=== PATIENT | male | born 1985 | race Asian ===

== ENCOUNTER 2016-06-15 13:22 | Emergency (ER) | payer OTHER ==
[~2016-06-15] VITALS: Ht 177.8 cm; Wt 93.0 kg
--- NOTE | 2016-06-15 13:44 | ED CARDIAC/CP/PALPITATIONS ---
History of Present Illness General Chief Complaint: Chest Pain Stated Complaint: CP Source: patient Exam Limitations: no limitations Allergies Coded Allergies: No Known Allergies (06/15/16) Reconcile Medications No Known Home Medications Triage Note: 30 Y/O MALE C/O L SIDED CHEST PAIN, INTERMITTENT SINCE YESTERDAY. "ITS DURING ONE BEAT AND THEN I DONT FEEL IT". DENIES FEELING ANY CHEST PAIN AT THIS TIME. +LIGHTHEADED PER PT. TAKEN FOR EKG Triage Nurses Notes Reviewed? yes HPI: This patient is a 30-year-old male with a past medical history including, "leaky heart valve," who presented to the emergency department today for evaluation of chest pain. The patient reported that yesterday throughout the day he would have one second intervals of sharp, squeezing left-sided chest pain that was coming go on its own. No provoking or palliative factors. He reported that the pain got up to a 3 or 4 out of 10. He reported that he was feeling some numbness in his left arm yesterday. He reported that he has been feeling dizzy and, "off," today. No chest pain or difficulty breathing today. He denied any fevers, chills, abdominal pain, nausea, vomiting, or back pain. No visual changes. The patient reported that approximately 4 years ago he was told that he had, "a leaky heart valve," and then 3 years ago he followed up with a public policy associate. They did an echocardiogram and an EKG and told him that he needed to follow-up for a stress test which he never did. The patient also reported that he has been under a lot of stress lately. (CLAUDIA GODINEZ,DIMITRIS) Vital Signs & Intake/Output Vital Signs & Intake/Output Vital Signs Date Time Temp Pulse Resp B/P B/P Pulse O2 O2 Flow FiO2 Mean Ox Delivery Rate 06/15 1521 98.8 75 18 127/75 99 Room Air 06/15 1326 97.7 97 16 166/90 98 Room Air Past History Travel History Traveled to [place] past 21 day No Medical History Any Pertinent Medical History? 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 No (CLAUDIA GODINEZ,DIMITRIS) Review of Systems Review of Systems Constitutional: Reports: no symptoms. EENTM: Reports: no symptoms. Respiratory: Reports: no symptoms. Cardiovascular: Reports: see HPI. GI: Reports: no symptoms. Genitourinary: Reports: no symptoms. Musculoskeletal: Reports: no symptoms. Skin: Reports: no symptoms. Neurological/Psychological: Reports: see HPI. All Other Systems: Reviewed and Negative (CLAUDIA GODINEZ,DIMITRIS) Physical Exam Physical Exam Cardiovascular: regular rate/rhythm, normal peripheral pulses, NO jvd. nO CAROTID BRUITS. nO RUBS OR GALLOPS. dIASTOLIC MURMUR HEARD BEST AT THEM FIFTH INTERCOSTAL SPACE, LEFT STERNAL BORDER Comments: Well-developed well-nourished person in no acute distress HEENT: Normal EENT exam, head normocephalic, moist mucous membranes PERRLA bilaterally Neck: Supple with no lymphadenopathy Back: Normal gait Respiratory: Chest nontender. No respiratory distress. Speaking in full sentences. Lungs clear to auscultation bilaterally with no wheezes, rales, or rhonchi Abdomen: Soft, nontender and nondistended Extremity: No edema, no calf tenderness to palpation, normal and equal pulses. Neuro: Alert oriented x3, cranial nerves II through XII grossly intact. Capillary refill less than 2 seconds Skin: No appreciable rash on exposed skin, skin is warm and dry. Psych: Mood and affect is normal Core Measures ACS in differential dx? Yes Severe Sepsis Present: No Septic Shock Present: No (CLAUDIA GODINEZ,DIMITRIS) Progress Differential Diagnosis: AMI, aortic dissection, atrial fibrillation, CHF/pulm edema, costochondritis, hyperkalemia, hyperthyroid, hyperventilation, musculoskeletal pain, myocarditis, pancreatitis, pericarditis, pneumonia, pneumothorax, PSVT, pulmonary embolism, PUD/GERD, PVCs/PACs, sepsis, unstable angina Diagnostic Imaging: Viewed by Me: Radiology Read. Discussed w/RAD: Radiology Read. Radiology Impression: PATIENT: ANTOINETTE ROOT PRESENT AGE: 30 PATIENT ACCOUNT NO: [id number] : 85 LOCATION: [facility] ORDERING PHYSICIAN: DIMITRIS TAYLOR PA-C SERVICE DATE: 06/15/16 EXAM TYPE: RAD - XRY-CHEST XRAY, PA AND LATERAL EXAMINATION: XR CHEST CLINICAL INFORMATION: Chest pain. Evaluate for cardiomegaly. COMPARISON: None TECHNIQUE: 2 views of the chest were obtained. FINDINGS: The cardiomediastinal silhouette is within normal limits in size. Lungs bilaterally are symmetrically expanded and clear. No effusion or pneumothorax is seen. Bony structures are unremarkable. IMPRESSION: Unremarkable examination. No evidence of cardiomegaly. DICTATED BY: DONNA VALLEJO MD DATE/TIME DICTATED:06/15/161404 CAP MACHINE OPERATOR:FAVIO DATE/TIME TRANSCRIBED:06/15/161404 CONFIDENTIAL, DO NOT COPY WITHOUT APPROPRIATE AUTHORIZATION. <Electronically signed in Other Vendor System> SIGNED BY: DONNA VALLEJO MD 06/15/161414 Initial ED EKG: normal axis, normal intervals, RBBB, no ST T wave changes, 64 BPM Comments: 4::2016 3:28:11 PM: I spoke with on-call cardiology, Dr. Lloyd, regarding this patient. Troponin <0.01. EKG with a slight RBBB, but no prior EKG to compare with. He suggested that this patient can be discharged and follow-up in the office. He stated that this patient's symptoms of 1 second chest pain does not sound cardiac in nature, but will need follow-up. Discussed this patient with Dr. Solorio who is in agreement with the plan. (CLAUDIA GODINEZ,DIMITRIS) Plan of Care: Orders Procedure Date/time Status Add-on Test (ER Only) 06/15 1411 Active DIRECT BILIRUBIN 06/15 1336 Complete THYROID STIMULATING HORMONE 06/15 1328 Complete TROPONIN LEVEL 06/15 1328 Complete LIPID PANEL 06/15 1328 Complete FREE T4 06/15 1328 Complete COMPREHENSIVE METABOLIC PANEL 06/15 1328 Complete CBC WITHOUT DIFFERENTIAL 06/15 1328 Complete EKG 06/15 1323 Active Laboratory Tests 06/15/16 1336: Anion Gap 13, Estimated GFR > 60, BUN/Creatinine Ratio 18.9, Glucose 104 H, Calcium 9.8, Total Bilirubin 1.4 H, Direct Bilirubin 0.2, AST 23, ALT 35, Alkaline Phosphatase 79, Troponin I < 0.01, Total Protein 8.3 H, Albumin 4.7, Globulin 3.6, Albumin/Globulin Ratio 1.3, Triglycerides 75, Cholesterol 159, LDL Cholesterol, Calc 89, HDL Cholesterol 55, Cholesterol/HDL Ratio 3, TSH 0.716, Free T4 1.35, CBC w Diff NO MAN DIFF REQ, RBC 5.11, MCV 87.4, MCH 29.3, RDW 12.7 , MPV 7.5, Gran % 60.1, Lymphocytes % 32.5, Monocytes % 6.2, Eosinophils % 0.8, Basophils % 0.4, Absolute Granulocytes 5.2, Absolute Lymphocytes 2.8, Absolute Monocytes 0.5, Absolute Eosinophils 0.1, Absolute Basophils 0, PUBS MCHC 33.5 Departure Departure Disposition: HOME OR SELF CARE Condition: Stable Clinical Impression Primary Impression: Chest pain Qualifiers: Chest pain type: unspecified Qualified Code: R07.9 - Chest pain, unspecified Referrals: Coral PARHAM MD (PCP/Family) PAULINO LLOYD MD Additional Instructions: Please follow-up with the public policy associate whose information has been provided to you in this packet. Return for any worsening symptoms or concerns. PLease see your primary care physician for follow-up. Departure Forms: Customer Survey General Discharge Information Prescriptions: Current Visit Scripts No Known Home Medications (DIMITRIS TAYLOR PA-C) PA/BRAND DIRECTOR Co-Sign Statement Statement: ED Attending supervision documentation- [] I saw and evaluated the patient. I have also reviewed all the pertinent lab results and diagnostic results. I agree with the findings and the plan of care as documented in the PA's/BRAND DIRECTOR's documentation. [x] I have reviewed the ED Record and agree with the PA's/BRAND DIRECTOR's documentation. [] Additions or exceptions (if any) to the PAs/BRAND DIRECTOR's note and plan are summarized below: [] (MIGUEL CHASE,SAUD Barnes) Critical Care Note Critical Care Note Critical Care Time: non-applicable (DIMITRIS TAYLOR PA-C)
[2016-06-15 13:46] LABS: ABSOLUTE BASOPHIL COUNT 0 /CUMM (0.0-0.2); ABSOLUTE EOSINOPHIL COUNT 0.1 /CUMM (0.0-0.7); ABSOLUTE GRANULOCYTE CT 5.2 /CUMM (1.4-6.5); ABSOLUTE LYMPH COUNT 2.8 /CUMM (1.2-3.4); ABSOLUTE MONOCYTE COUNT 0.5 /CUMM (0.10-0.60); BASOPHIL % 0.4 % (0.0-2.0); EOSINOPHIL % 0.8 % (0-5); GRANULOCYTE % 60.1 % (42.2-75.2); HEMATOCRIT 44.7 % (42-52); MEAN CORPUSCULAR HGB 29.3 PG (27.0-31.0); MEAN CORPUSCULAR HGB CONC 33.5 G/DL (33.0-37.0); MEAN CORPUSCULAR VOLUME 87.4 FL (80.0-94.0); MEAN PLATELET VOLUME 7.5 FL (7.4-10.4); PLATELET COUNT 291 /CUMM (130-400); RBC DISTRIBUTION WIDTH 12.7 % (11.5-14.5); RED BLOOD CELL CT 5.11 /CUMM (4.70-6.10); WHITE BLOOD CELL COUNT 8.6 /CUMM (4.8-10.8)
--- NOTE | 2016-06-15 14:15 | RADIOLOGY REPORT ---
EXAMINATION: XR CHEST CLINICAL INFORMATION: Chest pain. Evaluate for cardiomegaly. COMPARISON: None TECHNIQUE: 2 views of the chest were obtained. FINDINGS: The cardiomediastinal silhouette is within normal limits in size. Lungs bilaterally are symmetrically expanded and clear. No effusion or pneumothorax is seen. Bony structures are unremarkable. IMPRESSION: Unremarkable examination. No evidence of cardiomegaly.
[2016-06-15 15:21] VITALS: BP 127/75
== END 2016-06-15 15:47 ==
LOC: ERH 13:22
PROVIDERS: Physician Assistant
DX: R07.9 Chest pain, unspecified (principal)
CPT/HCPCS: 93005; 93010